=== PATIENT | female | born 1985 | race Caucasian/White ===

== ENCOUNTER 2019-07-22 12:50 | Emergency (ER) | payer OTHER ==
[~2019-07-22] VITALS: Ht 152.4 cm; Wt 68.0 kg
[~2019-07-22 12:50] MED LIST: BUSPIRONE HCL10 MG PO; CARAFATE1 GM/10 ML PO; CIPRO500 MG PO; CYMBALTA60 MG; DOXYCYCLINE 10100 MG PO; FIORICET-COD 51 EACH PO; FLAGYL500 MG PO; HYDROCODONE-APA1 TA1 PO; KEPPRA 500 MG500 M1 PO; LYRICA 50 MG50 MG PO; MIRTAZAPINE7.5 MG PO; NEURONTIN 300300 M1 PO; NORCO 5-325 TA1 EACH PO; OMEPRAZOLE40 MG PO; ONDANSETRON HCL4 M2 PO; PHENERGAN 25 MG25 M1 PO; PREDNISONE50 MG PO; PROZAC10 MG PO; PROZAC20 MG PO; TRAZODONE 150150 M1; TRAZODONE 150150 M1 PO; WELLBUTRIN 75 M75 M1; XANAX 0.5 MG0.5 M1; Z-QUIL PO; ZANAFLEX4 MG PO; ZOVIRAX400 MG PO
[2019-07-22] MEDS ORDERED: TOPAMAX 100 MG100 MG PO (13:08)
[2019-07-22] MEDS ORDERED: BUTALB-APAP-CA1 EACH PO (13:09)
[2019-07-22 13:14] LABS: URINE BLOOD NEGATIVE (Negative); URINE CLARITY CLEAR; URINE COLOR YELLOW; URINE GLUCOSE-RANDOM NEGATIVE (Negative); URINE KETONES TRACE (Negative); URINE LEUKOCYTES-REFLEX NEGATIVE (Negative); URINE NITRITE-REFLEX NEGATIVE (Negative); URINE PROTEIN TRACE (Negative); URINE SPECIFIC GRAVITY 1.025 (1.005-1.030); URINE UROBILINOGEN 0.2 E.U./dl (0.2-1.0)
[2019-07-22 13:21] LABS: URINE BILIRUBIN 1+ (Negative)
[2019-07-22 13:23] LABS: ICTOTEST (BILI CONFIRMATORY) Negative (Negative)
[2019-07-22 13:24] LABS: SQUAMOUS 4-10 Moderate /LPF (0-3); URINE WBC-REFLEX 0-5 Rare /HPF (0-5)
[2019-07-22 13:25] LABS: BACTERIA-REFLEX 1-9 Few /HPF (None Seen); CRYSTALS None Seen /LPF (None Seen); HYALINE CASTS 4-10 Moderate /LPF (None Seen); MUCUS >6 Heavy strn/LPF (None Seen); URINE RBC None Seen /HPF (0-2)
[2019-07-22 13:31] LABS: ABSOLUTE EOSINOPHILS 0.4 thou/uL (0.0-0.7); ABSOLUTE LYMPHOCYTES 3.3 thou/uL (0.8-5.3); ABSOLUTE MONOCYTES 0.4 thou/uL (0.0-1.2); BASOPHILS 0.8 %; EOSINOPHILS 6.2 %; HEMATOCRIT 39.9 % (37.0-47.0); HEMOGLOBIN 13.4 gm/dL (12.0-15.0); LYMPHOCYTES 53.9 %; MCHC 33.6 g/dL (28.0-37.0); MCV 95.2 fL (80.0-100.0); MPV 8.9 fl. (7.2-11.1); NUCLEATED RBCS 0 /100WBC; PLATELET COUNT* 297 thou/uL (150-400); POLYS 32.1 %; RBC 4.19 mil/uL (4.20-5.00); RDW-CV 13.4 % (10.5-14.5); WBC 6.2 thou/uL (4.0-11.0)
[2019-07-22 13:40] LABS: CALCIUM 8.6 mg/dL (8.5-10.1); POTASSIUM 3.7 mmol/L (3.5-5.1)
[2019-07-22 13:44] LABS: TOTAL BILIRUBIN 0.3 mg/dL (<0.1-1.0); TOTAL PROTEIN 8.4 g/dL (6.4-8.2)
[2019-07-22] MEDS ORDERED: KEFLEX500 M1 PO (14:45)
[2019-07-22] MEDS ORDERED: ACETAMINOPHEN-1 EAC1 PO (14:45)
[2019-07-22] MEDS ORDERED: ONDANSETRON HCL4 M2 PO (14:47)
[2019-07-22 15:14] VITALS: BP 134/88
== END 2019-07-22 15:15 | disposition home or self-care (01) ==
LOC: M.ERS 12:50
PROVIDERS: Nurse Practitioner Family
DX: N39.0 Urinary tract infection, site not specified (principal); N89.8 Other specified noninflammatory disorders of vagina; F17.210 Nicotine dependence, cigarettes, uncomplicated; F41.9 Anxiety disorder, unspecified; F32.9 Major depressive disorder, single episode, unspecified; G47.00 Insomnia, unspecified; M79.7 Fibromyalgia; Z88.6 Allergy status to analgesic agent; Z88.8 Allergy status to other drugs, medicaments and biological substances; Z88.0 Allergy status to penicillin; Z90.711 Acquired absence of uterus with remaining cervical stump; Z90.721 Acquired absence of ovaries, unilateral

== ENCOUNTER 2021-02-25 12:15 | Emergency (ER) | payer OTHER ==
[~2021-02-25] VITALS: Ht 152.4 cm; Wt 63.0 kg
[~2021-02-25 12:15] MED LIST changes: +ACETAMINOPHEN-1 EAC1 PO; +BUTALB-APAP-CA1 EACH PO; +KEFLEX500 M1 PO; +TOPAMAX 100 MG100 MG PO
[2021-02-25 12:30] VITALS: BP 135/86
[2021-02-25] MEDS ORDERED: DOXYCYCLINE 10100 MG PO (12:43)
== END 2021-02-25 12:45 | disposition home or self-care (01) ==
LOC: M.ERS 12:15
DX: L02.01 Cutaneous abscess of face (principal); M79.7 Fibromyalgia; Z90.711 Acquired absence of uterus with remaining cervical stump; Z90.721 Acquired absence of ovaries, unilateral; Z88.6 Allergy status to analgesic agent; Z88.0 Allergy status to penicillin

== ENCOUNTER 2021-04-01 09:51 | Emergency (ER) | payer OTHER, MEDICAID ==
[~2021-04-01] VITALS: Ht 154.9 cm; Wt 60.8 kg
[2021-04-01] MEDS ORDERED: PROZAC40 MG PO (10:06)
[2021-04-01] MEDS ORDERED: REMERON SOLTAB45 MG PO (10:06)
[2021-04-01] MEDS ORDERED: PHENERGAN 25 MG25 M1 PO (10:07)
[2021-04-01] MEDS ORDERED: TOPAMAX100 MG PO (10:07)
[2021-04-01] MEDS ORDERED: SUMATRIPTAN5 MG NASAL (11:38)
[2021-04-01 11:41] VITALS: BP 120/82
== END 2021-04-01 11:43 | disposition home or self-care (01) ==
LOC: M.ERS 09:51
DX: R51.9 Headache, unspecified (principal); R11.0 Nausea; M79.7 Fibromyalgia; Z90.711 Acquired absence of uterus with remaining cervical stump; F41.9 Anxiety disorder, unspecified; F32.9 Major depressive disorder, single episode, unspecified; F17.210 Nicotine dependence, cigarettes, uncomplicated; Z98.890 Other specified postprocedural states; Z79.899 Other long term (current) drug therapy; Z88.6 Allergy status to analgesic agent; Z88.0 Allergy status to penicillin